=== PATIENT | male | born 1965 | race Two or more races ===

== ENCOUNTER 2024-07-21 16:38 | Emergency (ER) | payer OTHER ==
[~2024-07-21] VITALS: Ht 167.6 cm; Wt 113.4 kg
[2024-07-21] MEDS ORDERED: PIPERACILLIN/TAZOBACTAM SODIUM 3.375 GM VIAL IV ONE (17:15)
[2024-07-21] MEDS ORDERED: 0.9 % SODIUM CHLORIDE 1,000 ML IV ONE (17:15)
[2024-07-21 18:07] LABS: HEMATOCRIT 43.9 % (39.0-48.0); MEAN CELL VOLUME 92.7 fL (80.0-100.00); MEAN CORPUSCULAR HEMOGLOBIN 31.6 pg (27.00-32.0); MEAN CORPUSCULAR HGB CONC 34.1 g/dl (32.0-36.0); PLATELET COUNT 284 K/uL (150-450); RED BLOOD COUNT 4.74 M/uL (4.00-6.00); RED CELL DISTRIBUTION WIDTH 13.8 % (11.5-14.5)
[2024-07-21 18:10] LABS: URINE APPEARANCE Clear; URINE BILIRRUBIN Small (NEGATIVE); URINE BLOOD Negative; URINE COLOR Dark Yellow; URINE GLUCOSE Negative (NEGATIVE); URINE LEUKOCYTE Negative; URINE NITRATE Negative
[2024-07-21 18:13] LABS: URINE BACTERIA 20.8 uL (0.0-1933); URINE EPITHELIAL CELLS 24.6 uL (0.0-38.8); URINE RBC 17.2 uL (0.0-20.8); URINE WBC 14.8 uL (0.0-23.2)
[2024-07-21 19:11] LABS: URINE CAST 0.44 uL (0.0-1.40); URINE KETONE >=160 (NEGATIVE); URINE PROTEIN 100 (NEGATIVE)
[2024-07-21 19:43] LABS: HEMATOCRIT 44.7 % (39.0-48.0); HEMOGLOBIN 15.3 g/dL (13-16.00); MEAN CELL VOLUME 91.3 fL (80.0-100.00); MEAN CORPUSCULAR HEMOGLOBIN 31.3 pg (27.00-32.0); MEAN CORPUSCULAR HGB CONC 34.3 g/dl (32.0-36.0); PLATELET COUNT 299 K/uL (150-450)
[2024-07-21 20:18] LABS: BILIRUBIN TOTAL 1.61 mg/dL (0.3-1.2); CALCIUM 8.6 mg/dL (8.5-10.1); CREATININE SERUM 0.71 mg/dL (0.70-1.30); GFR 113.95; POTASSIUM 4.15 mEq/L (3.5-5.1)
[2024-07-21] MEDS ORDERED: PROMETHAZINE HCL 25 MG/ML AMPUL IM ONE (22:15)
[2024-07-21] MEDS ORDERED: MEPERIDINE HCL/PF 50 MG/ML VIAL IM ONE (22:15)
[2024-07-21] MEDS ORDERED: PROMETHAZINE HCL 25 MG/ML AMPUL ONE (22:33)
[2024-07-22] MEDS ORDERED: ACETAMINOPHEN 325 MG TABLET PO PRN (00:30)
[2024-07-22] MEDS ORDERED: ONDANSETRON HCL 4 MG in 0.9 % SODIUM CHLORIDE 50 ML IV PRN (00:30)
[2024-07-22] MEDS ORDERED: 0.9 % SODIUM CHLORIDE 1,000 ML IV SCH (00:30)
[2024-07-22] MEDS ORDERED: MORPHINE SULFATE 4 MG/ML VIAL IV PRN (00:30)
[2024-07-22] MEDS ORDERED: KETOROLAC TROMETHAMINE 30 MG VIAL IU PRN (00:30)
[2024-07-22] MEDS ORDERED: PIPERACILLIN/TAZOBACTAM SODIUM 3.375 GM in 0.9 % SODIUM CHLORIDE 100 ML IV SCH (00:33)
[2024-07-22] MEDS ORDERED: PIPERACILLIN/TAZOBACTAM SODIUM 3.375 GM VIAL IV ONE (03:10)
[2024-07-22 03:35] VITALS: BP 133/85; O2SAT 94
[2024-07-22 04:10] LABS: INR 1.16; PARTIAL THROMBOPLASTIN TIME 34.7 SECONDS (22.0-34.0); PROTHROMBIN TIME 12.5 SECONDS (9.0-11.5)
[2024-07-22 04:40] VITALS: BP 125/65; O2SAT 96
[2024-07-22 08:00] VITALS: BP 119/77; O2SAT 96
[2024-07-22] MEDS ORDERED: FAMOTIDINE/PF 20 MG/2 ML VIAL IV SCH (09:00)
[2024-07-22] MEDS ORDERED: ACETAMINOPHEN 500 MG GEL..CAP PO PRN (10:15)
[2024-07-22] MEDS ORDERED: MORPHINE SULFATE 2 MG/ML CARTRIDGE IV PRN (10:15)
== END 2024-07-22 14:13 | disposition left against medical advice (07) ==
LOC: ER 16:38 → SURH 07-22 02:59 → ER 07-22 02:59 → SURH 07-22 03:29 → ER 07-22 14:13 → SURH 07-22 14:13
PROVIDERS: General Practice
DX: K81.0 Acute cholecystitis (principal); J90 Pleural effusion, not elsewhere classified